=== PATIENT | male | born 2000 | race Two or more races ===

== ENCOUNTER 2022-09-07 14:52 | Emergency (ER) | payer OTHER ==
[~2022-09-07] VITALS: Ht 182.9 cm; Wt 68.7 kg
[2022-09-07 15:45] VITALS: BP 114/62
== END 2022-09-07 19:13 | disposition home or self-care (01) ==
LOC: ER 14:52
DX: S50.12XA Contusion of left forearm, initial encounter (principal); F17.210 Nicotine dependence, cigarettes, uncomplicated; W22.8XXA Striking against or struck by other objects, initial encounter; Y93.89 Activity, other specified; Y92.89 Other specified places as the place of occurrence of the external cause; Y99.8 Other external cause status
CPT/HCPCS: 73090